=== PATIENT | male | born 1985 | race Hispanic/Latino ===

== ENCOUNTER 2023-01-15 16:47 | Emergency (ER) | payer SELFPAY ==
[2023-01-15] MEDS ORDERED: Bupivacaine 0.25% 10 ML VIAL ONE (17:01)
[2023-01-15] MEDS ORDERED: HYDROcodone/Acetaminophen 5/325 mg Tablet ONE (17:06)
== END 2023-01-15 17:26 | disposition home or self-care (01) ==
LOC: ERS 16:47
DX: K04.7 Periapical abscess without sinus (principal); K02.9 Dental caries, unspecified; F17.200 Nicotine dependence, unspecified, uncomplicated
CPT/HCPCS: 64400; S0020